=== PATIENT | male | born 1960 | race Caucasian/White ===

== ENCOUNTER 2016-10-21 23:03 | Emergency (ER) ==
--- NOTE | 2016-10-21 23:48 | PROVIDER DOCUMENTATION ---
HPI-General Adult <Elijah Golden - Last Filed: 10/22/16 00:08> - General Source: patient - History of Present Illness -Gen Adult Nature of Presenting Problems: 56 y/o m presents to the ed with dizziness/weakness/elevated blood sugar with an onset of this evening. pt states he has diabetes and its not managed very well due to him being homeless/unemployed. Location of Pain/Injury: reports: generalized Quality of Pain: reports: none Severity: reports: mild Onset/Duration: reports: this evening Timing: reports: still present Associated Symptoms: reports: dizziness, weakness Similar Symptoms Previously?: No Recently seen or treated by another doctor?: No <Meri Sierra - Last Filed: 10/22/16 00:47> - General Chief Complaint: High Blood Sugar Stated Complaint: dizzy, trouble urinating multiple complaints Time Seen by Provider: 10/21/16 23:36 Allergies/Adverse Reactions: Patient Allergies Allergy/AdvReac Type Severity Reaction Status Date / Time No Known Allergies Allergy Verified 10/21/16 23:19 Home Medications: No Home Medications 10/21/16 Review of Systems - Adult - REVIEW OF SYSTEMS - ADULT Constitutional: denies: chills, fever Cardiovascular: denies: chest pain, palpitations Neurological: reports: dizziness/vertigo. denies: headache/migraines <Meri Sierra - Last Filed: 10/22/16 00:47> Past History - Adult - PAST MEDICAL HISTORY-ADULT Review of Records: reports: Old Records Reviewed, Nursing Assessment Review, Medications Reviewed Cardiovascular: reports: HTN - PRIOR SURGERIES/PROCEDURES Surgical/Procedure History: reports: tonsillectomy - IMMUNIZATION STATUS Childhood Immunizations: See Nurse Assessment Flu Vaccine: See Nurse Assessment - SOCIAL HISTORY Smoking: quit less than 1 year <Meri Sierra - Last Filed: 10/22/16 00:47> Physical Exam-General - MUSCULOSKELETAL Extremity: other (scaly wounds over both hands with areas of ulceration) <Elijah Golden - Last Filed: 10/22/16 00:08> - PHYSICAL EXAM-ADULT Initial Vital Signs Reviewed: Yes - CONSTITUTIONAL General Appearance: alert, no apparent distress - EYES Eyes: PERRL/EOMI, pink conjunctivae, fundi clear, no AV nicking - HEAD, EARS, NOSE, MOUTH & THROAT HENMT: normocephalic/atraumatic, moist mucous membranes, normal ENT inspection - NECK Neck: non-tender, full range of motion, supple - RESPIRATORY Respiratory: chest non-tender, lungs clear, normal breath sounds - CARDIOVASCULAR Cardiovascular: normal peripheral pulses, regular rate, rhythm - GASTROINTESTINAL (ABDOMEN) Abdominal Exam: normal bowel sounds, non tender, soft - LYMPHATIC Lymphatic: no adenopathy - MUSCULOSKELETAL Back Exam: normal inspection - SKIN Integumentary: normal color, normal turgor, warm/dry - PSYCHIATRIC Psych/Mental Status: normal mood/affect, normal thought content, normal thought process, oriented x 3 <Meri Sierra - Last Filed: 10/22/16 00:47> Progress - PLAN OF CARE/RESULTS Progress/Plan/Lab Results: plan of care: labs Laboratory Tests 10/21/16 10/21/16 10/21/16 23:11 23:40 23:51 WBC 6.99 RBC 3.52 L Hgb 10.8 L Hct 32.1 L MCV 91.2 MCH 30.7 MCHC 33.6 RDW Std Deviation 12.5 Plt Count 324 MPV 10.3 Neut % (Auto) 56.8 Lymph % (Auto) 33.2 [place] % (Auto) 8.6 Eos % (Auto) 1.0 Baso % (Auto) 0.4 Neut # (Auto) 3.97 Lymph # (Auto) 2.32 [place] # (Auto) 0.60 H Eos # (Auto) 0.07 Baso # (Auto) 0.03 Sodium 137 Potassium 4.0 Chloride 98 Carbon Dioxide 27 Anion Gap 12 BUN 18 Creatinine 1.1 Estimated GFR/1.73 m2 > 60 BUN/Creatinine Ratio 16 Glucose 295 H POC Glucose 298 H Calculated Osmolality 287 Calcium 9.0 Total Bilirubin 0.92 AST 10 ALT 6 L Alkaline Phosphatase 97 Total Protein 6.7 Albumin 3.8 Globulin 2.9 Albumin/Globulin Ratio 1.3 Orders Category Date Time Status CBC WITH ELECTRONIC DIFF [HEME] Stat Lab 10/21/16 23:51 Completed CMP [COMPREHENSIVE METABOLIC PANEL] [CHEM] Stat Lab 10/22/16 00:09 Completed URINE DRUG SCREEN Stat Lab 10/22/16 00:15 Received Vital Signs - 24 hr 10/21/16 23:11 Temperature 98.7 F Pulse Rate 86 Respiratory 16 Rate Blood Pressure 111/66 O2 Sat by Pulse 97 Oximetry <Meri Sierra - Last Filed: 10/22/16 00:47> Departure <Elijah Golden - Last Filed: 10/22/16 00:08> - Departure Time of Disposition Order: 00:43 Certified Medical Emergency: Emergent <Meri Sierra - Last Filed: 10/22/16 00:47> - Departure DIAGNOSIS: Homelessness Diabetes Qualifiers: Diabetes mellitus type: type 2 Diabetes mellitus complication status: without complication 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 These instructions are being provided to you so you can have an understanding of how to care for yourself upon discharge. Upon discharge from the Emergency Department, you are responsible for making arrangements for follow-up care by a physician of your choice. Take all prescribed medications as directed. Return to the Emergency Department immediately for any new or worsening symptoms. You may call the Physician Referral phone number at [phone] to obtain a list of Physicians who are taking new patients. Attestation - Scribe Verification/Attestation Scribe:: Meri Sierra Acting as Scribe for:: Elijah Golden Scribe documention review:: This chart was documented by a scribe and accurately reflects the service the provider performed and the decisions made by the provider. <Meri Sierra - Last Filed: 10/22/16 00:47> Physician Attestation
[2016-10-22 00:20] LABS: MANUAL DIFF NEEDED? NO
[2016-10-22 00:24] LABS: BASO% 0.4 % (0.0-0.8); EOS# 0.07 X1000 (0.0-0.7); HEMATOCRIT 32.1 % (42.0-52.0); HEMOGLOBIN 10.8 g/dL (14.0-18.0); LYMPH# 2.32 X1000 (1.2-3.4); LYMPH% 33.2 % (20.5-51.1); MCH 30.7 PG (27-31); MCHC 33.6 g/dL (33-37); MCV 91.2 FL (81-99); MONO% 8.6 % (1.7-9.3); MPV 10.3 FL (7.4-10.4); NEUT% 56.8 % (42.2-75.2); PLT 324 X1000 (130-400); RBC 3.52 XMIL (4.7-6.1)
[2016-10-22 00:39] LABS: AGAP 12; ALBUMIN 3.8 g/dL (3.5-5.0); ALKALINE PHOSPHATASE 97 U/L (32-122); BUN 18 mg/dL (8-22); CHLORIDE 98 mmol/L (98-107); COSMO 287; GOT 10 U/L (10-34); GPT 6 U/L (10-44); SODIUM 137 mmol/L (136-145); TCO2 27 mmol/L (25-35); TOTAL BILIRUBIN 0.92 mg/dL (0.20-1.00); TOTAL PROTEIN 6.7 g/dL (6.3-8.3)
[2016-10-22 00:57] VITALS: BP 162/82
[2016-10-22 01:01] LABS: UR AMPHETAMINES QUAL NONE DETECTED (NONE DETECT); UR BARBITUATES QUAL NONE DETECTED (NONE DETECT); UR BENZODIAZEPIN QUAL NONE DETECTED (NONE DETECT); UR CANNABINOIDS QUAL NONE DETECTED (NONE DETECT); UR COCAINE QUAL NONE DETECTED (NONE DETECT); UR METHADONE QUAL NONE DETECTED (NONE DETECT); UR OPIATES QUAL NONE DETECTED (NONE DETECT); UR OXYCODONE QUAL NONE DETECTED (NONE DETECT); UR PCP QUAL NONE DETECTED (NONE DETECT)
== END 2016-10-22 00:57 | disposition home or self-care (01) ==
LOC: ED 23:03
DX: E11.9 Type 2 diabetes mellitus without complications (principal); R42 Dizziness and giddiness; R53.1 Weakness; I10 Essential (primary) hypertension; L98.499 Non-pressure chronic ulcer of skin of other sites with unspecified severity; Z59.0 Homelessness; Z87.891 Personal history of nicotine dependence
CPT/HCPCS: 80053; 82948; 85025; 99283; G0480